=== PATIENT | female | born 1960 | race Caucasian/White ===

== ENCOUNTER → 2023-11-20 12:55 | Outpatient (REF) | payer OTHER, BC, SELFPAY | LOC: DHCBC MAIN 12:55 | PROVIDERS: ATTENDING PHYSICIAN Internal Medicine Cardiovascular Disease; FAMILY PHYSICIAN Nurse Practitioner | DX: I48.0 Paroxysmal atrial fibrillation (principal); I34.0 Nonrheumatic mitral (valve) insufficiency | CPT/HCPCS: 93306 ==

== ENCOUNTER → 2025-07-07 11:21 | Outpatient (REF) | payer OTHER, SELFPAY | LOC: HWRCS 11:21 | PROVIDERS: ATTENDING PHYSICIAN Internal Medicine Cardiovascular Disease; FAMILY PHYSICIAN Nurse Practitioner Adult Health | DX: I34.1 Nonrheumatic mitral (valve) prolapse (principal); I34.0 Nonrheumatic mitral (valve) insufficiency | CPT/HCPCS: 93306 ==

== ENCOUNTER → 2025-07-21 10:36 | Outpatient (REF) | payer OTHER, SELFPAY | LOC: HWRAD 10:36 | PROVIDERS: ATTENDING PHYSICIAN Nurse Practitioner Adult Health | DX: R79.89 Other specified abnormal findings of blood chemistry (principal); J43.2 Centrilobular emphysema; Z87.891 Personal history of nicotine dependence; Z87.898 Personal history of other specified conditions | CPT/HCPCS: 71250; 76536; 76700 ==

== ENCOUNTER → 2025-09-01 10:55 | Outpatient (REF) | payer OTHER, SELFPAY | LOC: HWWDC 10:55 | PROVIDERS: ATTENDING PHYSICIAN Nurse Practitioner Adult Health | DX: Z12.31 Encounter for screening mammogram for malignant neoplasm of breast (principal) | CPT/HCPCS: 77063; 77067 ==